=== PATIENT | female | born 1990 | race Caucasian/White ===

== ENCOUNTER 2018-10-18 14:31 | Emergency (ER) | payer MEDICAID, SELFPAY ==
[2018-10-18 14:32] VITALS: BP 126/83; PULSE 73; RESP 16; TEMP 36.8; O2SAT 100; BMI 22.1
[2018-10-18 14:56] LABS: Mucous, Urine 0 SEEN /hpf (<or=2+)
[2018-10-18 14:59] LABS: Color, Urine Yellow (Yellow); Glucose, Dipstick Normal (Normal); Ketone-Dipstick Negative (Negative); Leukocyte Esterase-Dipstick 500 /ul (Negative); Nitrite-Dipstick Positive (Negative); Occult Blood-Urine 250 /ul (Negative); Protein-Dipstick 100 mg/dl (Negative); Specific Gravity, Urine 1.015 (1.002-1.030); Urine Bilirubin Dipstick Negative (Negative); Urine Clarity Sl. Cloudy (Clear); Urine Urobilinogen Normal (Normal)
[2018-10-18 15:14] LABS: Red Blood Cells-Urine 5-10 SEEN /hpf (0-5); White Blood Cells >100 SEEN /hpf (0-5)
[2018-10-18 15:15] LABS: Bacteria 2+ /hpf (None Seen); Squamous Epithelial Cells - UA 5-10 SEEN /hpf (5-10)
[2018-10-18 15:34] LABS: Internal QC Validated? YES +Cl - CLEAR BKGD; Pregnancy, Urine Negative Negative
--- NOTE | 2018-10-18 15:37 | ED.DCSUM_ITS ---
- ER Visit Summary Date of Service: 10/18/18 Chief Complaint: Left flank pain History of Present Illness: The patient is a [address] Cavazos and Dr. Drummond. She reports she has left flank pain that began yesterday. This is similar when she had kidney infections in the past. She denies any dysuria or frequency. However, she reports that she has not had dysuria frequency with prior kidney infections. She reports that the left flank pain is an aching, sharp pain is 8 out of 10 with movement 6 out of 10 at rest. She reports that her period began yesterday. 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 She denies any vaginal discharge. She has had nausea without vomiting. No fever. Physical Examination: Vitals: Stable. Afebrile. General: Well-nourished and well-developed. Head: Normocephalic atraumatic. Neck: Supple, no lymphadenopathy. No JVD. Nontender. Cardiovascular: Regular rate and rhythm. No murmurs. Respiratory: No respiratory distress. Clear to auscultation bilaterally. Abdominal: Soft, nontender, nondistended, normal bowel sounds. No guarding, rebound, or peritoneal signs. Back: Nontender. Extremities: Nontender, no edema. Skin: Normal color, no rash. Neurologic: Alert and oriented ?3. Cranial nerves II through XII are intact. Normal strength and sensation. Psych: Normal affect. Test Results: UA shows greater than 100 whites, 5-10 reds, 2+ bacteria. test is negative. Emergency Department Course and Treatment: Patient reports that she has had resistant organisms in the past. Her urine was sent for culture. I did offer to place an IV and give a dose of IV antibiotics and sent off blood work. She refused this. She was treated with Zofran and Keflex p.o. Treatment Plan: Patient will be discharged on Keflex and Zofran. Instructed return to emerge permit if she is unable to keep the medications down or develops fever. Follow-up with her primary care physician in 3 to 5 days for another exam. I did tell her that we would call with the results of the urine culture if the Keflex is not going to work. Return to the emergency department for any worsening symptoms. Disposition: To home in improved and stable condition. Impression: 1. UTI. This note was generated with [employer] software. It may contain incorrect words, spelling, and punctuation that were not noted in review of the chart prior to signing ED Disposition - Plan for ED Patient: Disposition: Home or Assisted Living Instructions: PYELONEPHRITIS, Female (Adult) Prescriptions: Cephalexin [Keflex] 500 mg PO Q12 #14 cap Prescription Printed Ondansetron [Zofran Odt] 4 mg PO Q8H PRN PRN #10 tab PRN Reason: Nausea Prescription Printed Referrals: Pushpa Cavazos MD [Primary Care Provider] - 3-5 Days
[2018-10-18] MEDS: Cephalexin 250 MG Capsule 500 MG PO (15:48)
[2018-10-18] MEDS: Ondansetron ODT 4 MG Tablet PO (15:49)
[2018-10-18 15:55] VITALS: PULSE 73; RESP 16; O2SAT 99
== END 2018-10-18 15:55 | disposition home or self-care (01) ==
PROVIDERS: Emergency Provider Emergency Medicine; Family Provider Internal Medicine; PCP Internal Medicine
DX: N39.0 Urinary tract infection, site not specified (principal); Z87.440 Personal history of urinary (tract) infections; Z72.0 Tobacco use
CPT/HCPCS: 81001; 81025; 87077; 87086; 87088; 87186; 99283

== ENCOUNTER 2018-11-14 18:05 | Emergency (ER) | payer MEDICAID, SELFPAY ==
[2018-11-14 18:06] VITALS: BP 126/85; PULSE 106; RESP 18; TEMP 37.3; O2SAT 100; BMI 22.8
[2018-11-14 18:47] LABS: Mucous, Urine 0 SEEN /hpf (<or=2+)
[2018-11-14 18:49] LABS: Color, Urine Yellow (Yellow); Glucose, Dipstick Normal (Normal); Ketone-Dipstick Negative (Negative); Leukocyte Esterase-Dipstick 500 /ul (Negative); Nitrite-Dipstick Positive (Negative); Occult Blood-Urine 150 /ul (Negative); Protein-Dipstick 30 mg/dl (Negative); Specific Gravity, Urine 1.015 (1.002-1.030); Urine Bilirubin Dipstick Negative (Negative); Urine Clarity Cloudy (Clear); Urine Urobilinogen Normal (Normal)
[2018-11-14 18:55] LABS: Red Blood Cells-Urine 0-5 SEEN /hpf (0-5); Squamous Epithelial Cells - UA 0-5 SEEN /hpf (5-10); White Blood Cells 50-100 SEEN /hpf (0-5)
[2018-11-14 18:56] LABS: Bacteria 1+ /hpf (None Seen)
--- NOTE | 2018-11-14 19:07 | ED.VISSUMM ---
- ER Visit Summary Date of Service: 11/14/18 Chief Complaint: [Concern for urinary tract infection] History of Present Illness: The patient is a 28 F [since the emergency department thinking she might have a urinary tract infection. Patient states that she gets them frequently. Patient is noticed increased dark urine and a foul odor to the urine. Patient had nausea but no vomiting. She describes some left lower abdominal discomfort and flank pain. Patient states that she was treated for UTI about a month ago but not finished all of the antibiotic because she started feeling better. She denies any fevers although she has had some chills.] Patient denies dysuria, hematuria, or frequency. Patient is currently on her menstrual period. Physical Examination: [HEENT-PERRLA, EOMI. Cranial nerves II through XII grossly intact. TMs clear. Mucous membranes moist. No adenopathy. Cardiovascular-regular rate and rhythm without murmur or ectopy Lungs-clear to auscultation, chest wall stable without crepitus or subcu emphysema Abdomen-normoactive bowel sounds, soft. He has mild tenderness over the left lower abdomen and left CVA. There is no rebound, rigidity, or perineal signs. Extremities-intact ?4, normal range of motion, normal pulses, atraumatic] Test Results: [Urinalysis obtained showed 500 leukocyte esterase as well as 50-100 WBCs and +1 bacteria.] Emergency Department Course and Treatment: [Patient was treated with Keflex and Pyridium. Patient states she typically tolerates Keflex very well and it usually resolves her issue.] Treatment Plan: [Follow up with primary care physician in 3 to 5 days. Patient given a prescription for Keflex and Pyridium. Patient advised to return if worsening pain, fever, vomiting, or conditions worsen anyway.] Disposition: [Discharged home in stable condition] Impression: [Urinary tract infection] This note was generated with [employer] dictation software. It may contain incorrect words, spelling, and punctuation that were not noted in review of the chart prior to signing ED Disposition - Plan for ED Patient: Referrals: Pushpa Cavazos MD [Primary Care Provider] -
--- NOTE | 2018-11-14 19:09 | ED.DEP ---
ED Disposition - Plan for ED Patient: Instructions: Urinary Tract Infections in Women Prescriptions: Cephalexin [Keflex] 500 mg PO Q6 #28 cap Prescription Printed Phenazopyridine HCl [Pyridium] 200 mg PO BID PRN PRN #10 tab PRN Reason: Pain Prescription Printed Referrals: Pushpa Cavazos MD [Primary Care Provider] - 3-5 Days
[2018-11-14] MEDS: Phenazopyridine 95 MG Tablet 190 MG PO (19:21)
[2018-11-14] MEDS: Cephalexin 250 MG Capsule 500 MG PO (19:21)
[2018-11-14 19:24] VITALS: BP 118/78; PULSE 92; RESP 18; O2SAT 98
== END 2018-11-14 19:25 | disposition home or self-care (01) ==
LOC: ED 18:51
PROVIDERS: Emergency Provider Emergency Medicine; Family Provider Internal Medicine; PCP Internal Medicine
DX: N39.0 Urinary tract infection, site not specified (principal); Z87.440 Personal history of urinary (tract) infections; Z72.0 Tobacco use
CPT/HCPCS: 81001; 87077; 87086; 87088; 87186; 99283

== ENCOUNTER 2019-10-21 22:30 | Emergency (ER) | payer MEDICAID, SELFPAY ==
[2019-10-21 22:31] VITALS: BP 137/82; PULSE 70; RESP 18; TEMP 36.7; O2SAT 9; BMI 24.6
--- NOTE | 2019-10-21 22:52 | US_ITS ---
STUDY: ABDOMINAL ULTRASOUND - RIGHT UPPER QUADRANT REASON FOR VISIT: Female, 29 years old ABD PAIN 1 HOUR TECHNIQUE: Ultrasound evaluation of the right upper quadrant was performed with real-time and static givens-scale imaging. TECHNICAL QUALITY: Adequate. COMPARISON: CT abdomen 10/19/2016. FINDINGS: Liver: The liver measures 17.2 cm. There is normal echogenicity of the liver. The bile ducts are within normal limits. There is hepatic color flow. The direction of portal flow is hepatopetal. There is no demonstrated mass lesion. Gallbladder: Normal distended gallbladder. The gallbladder wall measures 2 mm. There is a negative sonographic Gonzalez''s sign. There is no pericholecystic fluid. There are no gallstones. Common Bile Duct (C.B.D.): The common bile duct measures 2 mm. Pancreas: Pancreatic head is partially obscured by bowel gas. The pancreas is otherwise unremarkable. Normal size of the head, body and tail. There is normal echogenicity. There is no demonstrated pancreatic mass or cyst. Right Kidney: Normal size of the right kidney. The right kidney measures 10.4 x 3.9 x 3.8 cm. Normal renal cortex. The right cortex measures 1.4 cm. There is no demonstrated renal mass or cyst. There is no right hydronephrosis. Small right upper pole renal stone. US/Gallbladder IMPRESSION: 1. Upper pole right renal stone. Otherwise negative study. Electronically Signed: Mary Fay MD at 23:54 EDT Tel , Service support ,
--- NOTE | 2019-10-21 23:18 | ED.VIS.GI ---
History of Present Illness Chief Complaint: Abd Pain Informant: Patient - Abdominal Pain/Flank Pain Onset: Hours - 1.5 Context: Sudden Onset - after took my Zoloft pill Timing: Continuous Quality: Aching, Burning Location: Epigastric Current Severity: Severe Maximum Severity: Severe Worsened by: Nothing Relieved by: Nothing - Nausea/Vomiting/Emesis GI Symptom: Nausea, Vomiting Onset: Today - started as epigat pain started, not before Quality: Nonbilious. Negative for: Blood streaks Severity: Severe - Diarrhea/Melena/Hematochezia GI Symptom: Negative for: Diarrhea, Melena, Hematochezia Associated Symptoms: Negative for: Dysuria, Frequency, Hematuria, Urgency Narrative: Initially, limited history available from this patient, as she states things like sometimes when this happens? followed by this is the first time this is ever happened I do not know what you are asking me. Essentially, she states that she went to her doctor because she breaks out in acne, and was also talking to her about her depression and anxiety. She used to be on Zoloft, she tolerated it, however has been off of it for a while, and her doctor gave her a new prescription to get back onto it. She filled the prescription several hours ago, she took the first pill and she states that a short time thereafter, she started having epigastric pain and vomiting. She feels like the pain is in her back, although it is difficult to discern from the patient whether she always has back pain, had it before this or not, but the abdominal pain she states is new. She has had a tummy tuck and tubal ligation but no other abdominal surgeries. Neither was recent. After getting the patient feeling better, she provided more details. She states that she was drinking a smoothie at the time that she started drinking before she took the pill. She started feeling supraumbilical cramping and aching that quickly became much worse and caused vomiting. The pain from the beginning has been nonlateralizing. It did radiate into her back. - Past Medical History (1) Anxiety and depression Status: Chronic Past Medical History - Allergies and Home Meds Allergies/Adverse Reactions: Allergies amoxicillin [Amoxicillin] Allergy (Verified 11/14/18 18:08) Rash lamotrigine Allergy (Verified 11/14/18 18:08) Rash minocycline [Minocycline] Allergy (Verified 08/22/19 18:08) Rash sulfamethoxazole [From Bactrim] Allergy (Verified 11/14/18 18:08) Rash trimethoprim [From Bactrim] Allergy (Verified 11/14/18 18:08) Rash Primary Care Physician: Pushpa Cavazos MD [Primary Care Provider] - Surgical History: - - jacob smallwood, ÁNGEL Smoking Status: Current every day smoker Drugs: None - Family History Paternal Family History: Reports: Hypertension Review of Systems General: Reports: Malaise. Denies: Chills, Fever, Sweats Eyes: Denies: Visual changes - bilaterally, Diplopia ENT: Denies: Bilateral ear pain, Rhinorrhea, Sore throat Cardiovascular: Denies: Chest pain, Palpitations Respiratory: Denies: Dyspnea, Cough, Dyspnea on exertion Gastrointestinal: Reports: Abdominal pain, Nausea, Vomiting. Denies: Diarrhea, Melena, Hematochezia Genitourinary: Denies: Dysuria, Hematuria, Frequency Musculoskeletal: Reports: Back pain. Denies: Neck pain, Swelling, Extremity Pain Skin: Denies: Rash, Wounds Neurological: Denies: Headache, Weakness, Numbness Psych: Reports: Anxiety - per pt. Denies: Suicidal thoughts Physical Exam Vital Signs/Narrative: Vital Signs Temp Pulse Resp BP Pulse Ox 10/21/19 22:31 98.1 F 70 18 137/82 H 9 Inital Vital Signs reviewed: Yes General: Well nourished, Well developed, No Acute Distress - but ill-appearing, vomiting Head: Normocephalic, Atraumatic Eyes: Perrl, EOMI ENT: Moist mucous membranes, No rhinorrhea Neck: Supple, Nontender Cardiovascular: Regular rate, Regular rhythm, No murmurs. Negative for: Tachycardia Respiratory: No distress, CTA bilaterally, Chest nontender Abdomen: Soft, Nondistended, Normal bowel sounds, Tender - across upper abd including RUQ, worst at epigastrium. nontender throughout lower abdomen.. Negative for: Gonzalez's sign - but exam limited Back: Nontender, Normal Inspection. Negative for: CVA tenderness Extremities: Nontender, No edema Skin: Normal color, No rash, No Trauma Neurological: Alert, Oriented x3, Cranial nerves II-XII grossly intact, Normal Strength, Normal Sensation, Normal Gait Psychological: - - anxious Diagnostic/Tx/Re-eval Impressions Gallbladder Ultrasound 10/21/19 22:52 IMPRESSION: 1. Upper pole right renal stone. Otherwise negative study. Electronically Signed: Mary Fay MD at 23:54 EDT Tel , Service support , 10/21/19 22:52 Gallbladder [US] Stat Laboratory Results 10/21/19 10/21/19 10/21/19 23:47 23:47 23:47 WBC 14.0 H RBC 4.84 Hgb 14.6 Hct 42.1 MCV 87.0 MCH 30.2 MCHC 34.7 RDW Std Deviation 38.5 RDW Coeff of Kim 12.0 Plt Count 245 MPV 10.6 Immature Gran % (Auto) 0.400 Neut % (Auto) 78.6 H Lymph % (Auto) 16.2 L [place] % (Auto) 4.0 Eos % (Auto) 0.6 Baso % (Auto) 0.2 Absolute Neuts (auto) 11.0 H Absolute Lymphs (auto) 2.28 Nucleated RBC % 0 Sodium 139 Potassium 3.4 L Chloride 107 Carbon Dioxide 25.0 Anion Gap 7 BUN 19 H Creatinine 0.78 Estim Creat Clear Calc 112.22 Est GFR (MDRD) Af Amer 114 Est GFR (MDRD) Non-Af 94 BUN/Creatinine Ratio 24.5 H Glucose 104 Calcium 9.9 Total Bilirubin 0.50 AST 24 ALT 45 Alkaline Phosphatase 50 Total Protein 8.1 Albumin 4.8 Globulin 3.3 Albumin/Globulin Ratio 1.5 Lipase 59 L Serum , Qual NEGATIVE - Medical Decision Making Patient appeared fairly miserable and ill, so initially she was given an ODT Zofran because she was hunched over the side of the bed did not appear that she would tolerate placing an IV at the time. This did help, nurses were able to get an IV and give her a liter of fluid, and she appeared much better after the Zofran helped. She was then given a GI cocktail, she felt like this did help some. On reexamination after this and test results, she still had mild tenderness it was diffuse across the upper abdomen, more on the left upper quadrant and epigastrium. Her ultrasound showed no issues in the liver or gallbladder. Showed an incidental renal stone, this is not causing her symptoms but we talked about the possibility of another stone being present in the ureter, but I think that is less likely given the distribution of her symptoms and the quality of them. I offered a CT anyway, given her leukocytosis which is nonspecific, she declines and is okay following up. I talked with her more about all this, and she states that she has had cramping and aching abdominal pains in this area in the past but nothing this severe, this must be what she meant in the HPI. My suspicion is that this is some type of functional intestinal pain. We will call gastritis for now and place her on a PPI in addition to giving her prescriptions for Zofran and dicyclomine to use as needed. Advised to follow-up. She is comfortable with that plan. ED Disposition - Plan for ED Patient: Disposition: Home or Assisted Living Diagnosis: Acute gastritis, Upper abdominal pain of unknown etiology Instructions: ED Gastritis, ED Abdominal Pain Unkn Cause Fem Prescriptions: Dicyclomine HCl [Bentyl] 20 mg PO . Q4-6H PRN #20 cap PRN Reason: abdominal pain Prescription Printed Pantoprazole Sodium [Protonix] 40 mg PO DAILY #30 tab Prescription Printed Ondansetron [Zofran Odt] 8 mg PO Q8H PRN PRN #20 tab PRN Reason: Nausea Prescription Printed Referrals: Pushpa Cavazos MD [Primary Care Provider] - 1-2 Weeks
[2019-10-21] MEDS: Ondansetron ODT 4 MG Tablet 8 MG PO (23:32)
[2019-10-21 23:34] VITALS: BP 131/90; PULSE 76; RESP 15; O2SAT 100
[2019-10-21] MEDS: 0.9% Normal Saline 1,000 ML 1000 ML IV (23:51)
[2019-10-21 23:54] LABS: Absolute Lymphocyte Count 2.28 X10^3/uL (0.83-4.51); Basophil# 0.03 X10^3/uL; Basophil% 0.2 % (0-1); Eosinophil# 0.08 X10^3/uL; Eosinophils% 0.6 % (0-5); Hematocrit 42.1 % (37-47); Hemoglobin 14.6 g/dL (12.0-15.0); Lymphocyte # 2.28 X10^3/ul (4.0); Lymphocyte % 16.2 % (19-41); Mean Corp Hgb Conc 34.7 g/dL (32-36); Mean Corpuscular Hgb 30.2 pg (27.0-32.0); Mean Platelet Vol. 10.6 fl (6.2-12.0); Monocyte# 0.56 X10^3/uL; NRBC Flagged by Analyzer 0 % (0-5); Neutrophil # 11.04 X10^3/uL (2.7-7.7); Neutrophil % 78.6 % (47-70); Platelet Count 245 K/mm3 (150-450); RBC Distribution Width SD 38.5 fl (35.1-43.9); Red Blood Count 4.84 M/mm3 (4.2-5.4)
[2019-10-22 00:03] LABS: Internal QC Validated? YES +Cl - CLEAR BKGD
[2019-10-22 00:04] LABS: Pregnancy, Serum, hCG Quali. NEGATIVE Negative
[2019-10-22 00:09] LABS: ALB/GLOB Ratio 1.5 RATIO (0.9-2.4); AST(SGOT) 24 U/L (15-37); Alanine Aminotransfer ALT/SGPT 45 U/L (13-56); Albumin, Serum 4.8 g/dL (3.2-5.0); Alkaline Phosphatase 50 U/L (45-117); Anion Gap 7 (5-15); BUN 19 mg/dL (7-18); BUN/Creat Ratio 24.5 RATIO (10-20); Calcium,Total 9.9 mg/dL (8.5-10.1); Chloride 107 mmol/L (98-107); Creatinine, Serum 0.78 mg/dL (0.55-1.02); EST Glomerular Filtration Rate 94 mL/min (>60); Est Glom Filt Rate - Afr Amer 114 mL/min (>60); Estimated Creatinine Clearance 112.22 ml/min; Globulin 3.3 g/dL (2.2-4.2); Glucose 104 mg/dL (74-106); Lipase 59 U/L (73-393); Potassium 3.4 mmol/L (3.5-5.1); Protein, Total 8.1 g/dL (6.4-8.2); Sodium Level 139 mmol/L (136-145)
[2019-10-22] MEDS: Mag Hydrox/Al Hydrox/Simeth 30 ML UDC PO (00:20)
[2019-10-22 01:31] VITALS: BP 123/72; PULSE 85; RESP 16; O2SAT 99
[2019-10-22] MEDS: Pantoprazole Sodium 40 MG Tablet PO (01:32)
[2019-10-22] MEDS: Dicyclomine 10 MG Capsule 20 MG PO (01:32)
== END 2019-10-22 01:44 | disposition home or self-care (01) ==
PROVIDERS: Emergency Provider Emergency Medicine; PCP Internal Medicine
DX: K29.00 Acute gastritis without bleeding (principal); R10.10 Upper abdominal pain, unspecified; F17.200 Nicotine dependence, unspecified, uncomplicated
CPT/HCPCS: 76705; 80053; 83690; 84703; 85025; 96361; 96374; 99284; J7030